=== PATIENT | male | born 1960 | race Two or more races ===

== ENCOUNTER 2022-12-28 10:54 | Outpatient (OUT) | payer OTHER, SELFPAY ==
[2022-12-28 12:02] LABS: Basophils Absolute Auto 0.1 10^3/uL (0.0-0.1); Basophils Percent Auto 1.4 % (0.2-2.0); Eosinophils Absolute Auto 0.1 10^3/uL (0.0-0.7); Eosinophils Percent Auto 3.3 % (0.9-7.0); Hematocrit 40.9 % (42.0-54.0); Hemoglobin 13.1 g/dL (14.0-18.0); Immature Granulocytes Abs Auto 0.01 10^3/uL (0.00-0.03); Immature Granulocytes Pct Auto 0.3 % (0.0-0.5); Lymphocytes Absolute Auto 1.3 10^3/uL (1.2-3.8); Lymphocytes Percent Auto 37.3 % (20.5-60.0); Mean Corpuscular Hemoglobin 28.6 pg (25.9-34.0); Mean Corpuscular Volume 89.3 fL (80.0-94.0); Mean Platelet Volume 10.6 fL (9.5-13.5); Monocytes Absolute Auto 0.5 10^3/uL (0.3-0.8); Monocytes Percent Auto 12.5 % (1.7-12.0); Neutrophils Absolute Auto 1.6 10^3/uL (1.4-6.5); Neutrophils Percent Auto 45.2 % (43.0-75.0); Platelet Count 235 10^3/uL (150-450); Red Blood Count 4.58 10^6/uL (4.70-6.10); Red Cell Distribution Width 14.8 % (11.0-15.0); White Blood Count 3.6 10^3/uL (4.0-11.0)
[2022-12-28 12:21] LABS: Estimated Average Glucose 108 mg/dL; Glycohemoglobin A1C 5.4 % (4.5-6.2)
[2022-12-28 12:41] LABS: Alanine Aminotransferase 33 U/L (16-63); Albumin Globulin Ratio 0.9; Albumin Level 3.7 g/dL (3.4-5.0); Alkaline Phosphatase 95 U/L (46-116); Anion Gap 12.7; Aspartate Amino Transferase 21 U/L (15-37); BUN Creatinine Ratio 19.1; Bilirubin Direct 0.1 mg/dL (0.0-0.2); Bilirubin Total 0.5 mg/dL (0.2-1.0); Calcium 9.2 mg/dL (8.5-10.1); Carbon Dioxide 27.4 mmol/L (21.0-32.0); Chloride 104 mmol/L (98-107); Chol HDL Ratio 1.8; Cholesterol 182 mg/dL (<=200); Estimated GFR (African America >60 (>=60); Estimated GFR (Non-African Ame >60 (>=60); Globulin 3.9 g/dL; Glucose 98 mg/dL (74-106); HDL Cholesterol 100 mg/dL (40-60); Potassium 4.1 mmol/L (3.5-5.1); Sodium 140 mmol/L (136-145); Thyroid Stimulating Hormone 3.287 uIU/mL (0.358-3.740); Total Protein 7.6 g/dL (6.4-8.2); Triglycerides 53 mg/dL (<=150); VLDL CHOLESTEROL 10.6 mg/dL
[2022-12-28 13:16] LABS: Prostate Specific Antigen Dx 0.56 ng/mL (<=4.00)
[2022-12-29 05:08] LABS: HSV 1 IgG, Type Spec <0.91 index (0.00-0.90); HSV 2 IgG, Type Spec <0.91 index (0.00-0.90)
== END 2022-12-28 10:55 ==
PROVIDERS: PCP Family Medicine; Visit Provider Family Medicine
DX: Z00.00 Encounter for general adult medical examination without abnormal findings (principal); Z20.2 Contact with and (suspected) exposure to infections with a predominantly sexual mode of transmission
CPT/HCPCS: 36415; 80048; 80061; 80076; 83036; 84153; 84443; 85025; 87389

== ENCOUNTER 2023-08-29 18:13 | Outpatient (OUT) | payer OTHER, SELFPAY ==
--- NOTE | 2023-08-29 18:37 | XR_ITS ---
The [address] [address] Patient Name: MIGUEL GASTELUM MRN: [id number] date: 1960 Sex: M Assigned Patient Location: [facility] Current Patient Location: Accession/Order Number: [id number] Exam Date: 08/29/2023 18:32 Report Date: 08/30/2023 03:10 At the request of: JANICE PHAM Procedure: XR shoulder RT min 2V SHOULDER RADIOGRAPHS: 08/29/2023 6:32 PM EST CLINICAL HISTORY: Chronic right shoulder pain following lifting injury 8 months ago. TECHNIQUE: Three routine views of the right shoulder were obtained. COMPARISON: None. FINDINGS: There is no fracture or acute osseous abnormality. There is no destructive osseous process. No dislocation or subluxation of joints. There is mild degenerative acromioclavicular joint narrowing with some minor subclavicular and subacromial spurring and joint level. Normal and well-preserved glenohumeral joint without significant degenerative change. No focal soft tissue abnormalities are evident. Bony mineralization is normal. XR/XR shoulder RT min 2V IMPRESSION: 1. No acute or healing fractures. 2. No acute joint findings. 3. 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 This could cause or contribute to rotator cuff impingement. If present clinically, this can be further assessed with outpatient/nonemergent right shoulder MRI. Electronically authenticated by: ALEJA GUTIERREZ Date: 08/30/2023 03:10
== END 2023-08-29 18:14 | disposition home or self-care (01) ==
LOC: RAD 18:16
PROVIDERS: PCP Family Medicine; Visit Provider Family Medicine
DX: M25.511 Pain in right shoulder (principal); M19.011 Primary osteoarthritis, right shoulder
CPT/HCPCS: 73030

== ENCOUNTER 2024-04-22 16:09 | Outpatient (OUT) | payer OTHER, SELFPAY ==
--- OUTSIDE RECORDS SUMMARY | 2024-04-22 16:24 | XMS_ITS | CCD ---
Author Organization [facility] Care Team Providers Care Pump Operator Name Role Phone DR JANICE PHAM Attending Unavailable ANKIT, DR JANICE Yoo Consulting Unavailable ANKIT, DR JANICE Yoo Primary Care Unavailable ANKIT, DR JANICE Yoo Admitting JANICE Chatman Referring Unavailable Wilfredo ADAMS Attending Unavailable Janice Pham MD Primary Care Provider Janice Pham MD Primary Care Provider [phone] JANICE PHAM Attending Unavailable JHONY CINTRON Attending JHONY Rivera Referring Unavailable Medications Current Medications Medication Drug Class(es) Dates Sig (Normalized) Sig (Original) aspirin 81 mg delayed release oral tablet (1 source) Platelet Aggregation Inhibitor, Nonsteroidal Anti-inflammatory Drug take 1 tablet by mouth in the morning aspirin 81 mg Take 1 tablet (81 mg total) by mouth in the morning. 0 Active calcium citrate 250 mg / ergocalciferol 100 mg oral tablet (1 source) Provitamin D2 Compound take 1 tablet by mouth in the morning, then take 1 tablet by mouth once at bedtime calcium citrate-vitamin D2 250 mg-2.5 mcg (100 unit) per tablet Take 1 tablet by mouth in the morning and 1 tablet before bedtime. 0 Active podofilox 5 mg/ml topical solution (1 source) Start: 07-03-2023 podofilox (CONDYLOX) 0.5 % external solution Apply topically 2 (two) times a day. Use for 3 days, hold for 4 days. Repeat as needed up to 4 times. 3.5 mL 0 07/03/2023 Active simvastatin 40 mg oral tablet (1 source) HMG-CoA Reductase Inhibitor Start: 06-06-2023 take 1 tablet by mouth at bedtime simvastatin (ZOCOR) 40 mg tablet TAKE 1 TABLET BY MOUTH AT BEDTIME 0 06/06/2023 Active valACYclovir 500 mg oral tablet (1 source) Herpesvirus Nucleoside Analog DNA Polymerase Inhibitor, Herpes Simplex Virus Nucleoside Analog DNA Polymerase Inhibitor, Herpes Zoster Virus Nucleoside Analog DNA Polymerase Inhibitor Start: 06-06-2023 take 1 tablet by mouth once daily valACYclovir (VALTREX) 500 mg tablet TAKE 1 TABLET BY MOUTH DAILY 0 06/06/2023 Active Problems Problem Classification Problem Date Documented Da te Episodic/Chronic Nutritional deficiencies (1 source) Vitamin D deficiency, unspecified; Translations: [VITAMIN D DEFICIENCY UNSPECIFIED] Onset: 12-07-2021 Chronic Other male genital disorders (1 source) Lesion of penis; Translations: [Disorder of penis, unspecified] Onset: 07-03-2023 07-03-2023 Chronic Other non-traumatic joint disorders (1 source) Pain in right shoulder; Translations: [Pain in joint, shoulder region] 08-29-2023 Episodic Other screening for suspected conditions (not mental disorders or infectious disease) (1 source) Encounter for screening for malignant neoplasm of prostate; Translations: [ENC SCREEN MALIG NEOPLASM PROSTATE] Onset: 12-07-2021 Episodic Results Test Name Value Interpretation Reference Range Facil ity CBC AUTO DIFFon 12-04-2021 BASO # 0.0 103/ul Normal 0.0-0.1 [facility] Comment on above: Performed By: #### C BC #### [facility] [address] [place] [address] Dr. Vaughn Molina Basophils/100 WBC (Bld) 0.6 % Normal 0.2-2.0 [facility] Comment on above: Performed By: #### C BC #### [facility] [address] [place] [address] Dr. Vaughn Molina EO # 0.1 103/ul Normal 0.0-0.7 [facility] Comment on above: Performed By: #### C BC #### [facility] [address] [place] [address] Dr. Vaughn Molina Eosinophils/100 WBC (Bld) 2.1 % Normal 0.9-7.0 [facility] Comment on above: Performed By: #### C BC #### [facility] [address] [place] [address] Dr. Vaughn Molina Erythrocyte distribution width (RBC) [Ratio] 14.6 % Normal 11.0-15.0 [facility] Comment on above: Performed By: #### C BC #### [facility] [address] [place] [address] Dr. Vaughn Molina Hematocrit (Bld) [Volume fraction] 44.2 % Normal 42.0-54.0 [facility] Comment on above: Performed By: #### C BC #### [facility] [address] [place] [address] Dr. Vaughn Molina Hemoglobin (Bld) [Mass/Vol] 13.7 g/dL Critically low 14.0-18.0 [facility] Comment on above: Performed By: #### C BC #### [facility] [address] [place] [address] Dr. Vaughn Molina IG # 0.01 10e3/ul Normal 0.00-0.03 [facility] Comment on above: Performed By: #### C BC #### [facility] [address] [place] [address] Dr. Vaughn Molina IG % 0.2 % Normal 0.0-0.5 [facility] Comment on above: Performed By: #### C BC #### [facility] [address] [place] [address] Dr. Vaughn Molina LYMPH # 1.4 103/ul Normal 1.2-3.8 [facility] Comment on above: Performed By: #### C BC #### [facility] [address] [place] [address] Dr. Vaughn Molina Lymphocytes/100 WBC (Bld) 29.9 % Normal 20.5-60.0 [facility] Comment on above: Performed By: #### C BC #### [facility] [address] [place] [address] Dr. Vaughn Molina MANUAL DIFF REQ NO Normal [facility] Comment on above: Performed By: #### C BC #### [facility] [address] [place] [address] Dr. Vaughn Molina MCH (RBC) [Entitic mass] 27.6 pg Normal 25.9-34.0 [facility] Comment on above: Performed By: #### C BC #### [facility] [address] [place] [address] Dr. Vaughn Molina MCHC (RBC) [Mass/Vol] 31.0 g/dL Normal 29.9-35.2 [facility] Comment on above: Performed By: #### C BC #### [facility] [address] [place] [address] Dr. Vaughn Molina MCV (RBC) [Entitic vol] 89.1 fL Normal 80.0-94.0 [facility] Comment on above: Performed By: #### C BC #### [facility] [address] [place] [address] Dr. Vaughn Molina MONO # 0.5 103/ul Normal 0.3-0.8 [facility] Comment on above: Performed By: #### C BC #### [facility] [address] [place] [address] Dr. Vaughn Molina Monocytes/100 WBC (Bld) 10.8 % Normal 1.7-12.0 [facility] Comment on above: Performed By: #### C BC #### [facility] [address] [place] [address] Dr. Vaughn Molina NEUT # 2.7 103/ul Normal 1.4-6.5 [facility] Comment on above: Performed By: #### C BC #### [facility] [address] [place] [address] Dr. Vaughn Molina Neutrophils/100 WBC (Bld) 56.4 % Normal 43.0-75.0 [facility] Comment on above: Performed By: #### C BC #### [facility] [address] [place] [address] Dr. Vaughn Molina Platelet mean volume (Bld) [Entitic vol] 11.0 fL Normal 9.5-13.5 [facility] Comment on above: Performed By: #### C BC #### [facility] [address] [place] [address] Dr. Vaughn Molina PLT 252 103/ul Normal 150-450 [facility] Comment on above: Performed By: #### C BC #### [facility] [address] [address] [address] Vaughn Molina RBC 4.96 106/ul Normal 4.70-6.10 [facility] Comment on above: Performed By: #### C BC #### [facility] [address] [place] [address] Dr. Vaughn Molina WBC 4.7 103/ul Normal 4.0-11.0 [facility] Comment on above: Performed By: #### C BC #### [facility] [address] [place] [address] Dr. Vaughn Molina GLYCOHEMOGLOBIN A1Con 2021 ADA RECOMMENDATION SEE BELOW Normal [facility] Comment on above: Result Comment: ADA RECOMMENDED LIMIT 4.0 - 6.0 ADA THERAPEUTIC TARGET < 7.0 ACTION SUGGESTED > 7.0 Performed By: #### A 1C #### [facility] [address] [place] [address] Dr. Vaughn Molina Glucose [Mass/Vol] 120 mg/dL Normal [facility] Comment on above: Performed By: #### A 1C #### [facility] [address] [place] [address] Dr. Vaughn Molina HbA1c (Bld) [Mass fraction] 5.8 % Normal 4.5-6.2 [facility] Comment on above: Performed By: #### A 1C #### [facility] [address] [place] [address] Dr. Vaughn Molina LIPID PROFILEon 12-04-2021 CHOL-HDL RATIO NORM SEE BELOW Normal [facility] Comment on above: Result Comment: 3.3 - 4.4 LOW RISK 4.4 - 7.1 AVERAGE RISK 7.1 - 11.0 MODERATE RISK >11.0 HIGH RISK Performed By: #### L IVMILAGRO, LIPID, TSH, BMP #### [facility] [address] [place] [address] Dr. Vaughn Molina Cholesterol [Mass/Vol] 172 mg/dL Normal <=200 [facility] Comment on above: Performed By: #### L DORY, LIPID, TSH, BMP #### [facility] [address] [address] [address] Vaughn Molina Cholesterol in HDL [Mass/Vol] 84 mg/dL Critically high 40-60 [facility] Comment on above: Performed By: #### L IVER, LIPID, TSH, BMP #### [facility] [address] [address] [address] Vaughn Molina Cholesterol in LDL [Mass/Vol] 75.6 mg/dL Normal [facility] Comment on above: Performed By: #### L IVER, LIPID, TSH, BMP #### [facility] [address] [address] [address] Vaughn Molina Cholesterol.total/Cho lesterol in HDL [Mass ratio] 2.0 {ratio} Normal [facility] Comment on above: Performed By: #### L IVER, LIPID, TSH, BMP #### [facility] [address] [place] [address] Dr. Vaughn Molina HDL NORMAL > or = 60 mg/dl - LOW CARDIOVASCULAR RISK <40 mg/dl - HIGH CARDIOVASCULAR RISK Normal [facility] Comment on above: Performed By: #### L IVER, LIPID, TSH, BMP #### [facility] [address] [place] [address] Dr. Vaughn Molina LDL CALC NORMAL SEE BELOW Normal [facility] Comment on above: Result Comment: <100 mg/dl OPTIMAL 100 - 129 mg/dl NEAR OR ABOVE OPTIMAL 130 - 159 mg/dl BORDERLINE HIGH 160 - 189 mg/dl HIGH >190 mg/dl VERY HIGH Performed By: #### L IVER, LIPID, TSH, BMP #### [facility] [address] [place] [address] Dr. Vaughn Molina Triglyceride [Mass/Vol] 62 mg/dL Normal <=150 [facility] Comment on above: Performed By: #### L IVER, LIPID, TSH, BMP #### [facility] [address] [place] [address] Dr. Vaughn Molina VLDL CALC 12.4 mg/dL Normal [facility] Comment on above: Performed By: #### L IVER, LIPID, TSH, BMP #### [facility] [address] [place] [address] Dr. Vaughn Molina LIVER PROFILEon 12-04-2021 Albumin [Mass/Vol] 3.8 g/dL Normal 3.4-5.0 [facility] Comment on above: Performed By: #### L IVER, LIPID, TSH, BMP #### [facility] [address] [place] [address] Dr. Vaughn Molina Albumin/Globulin [Mass ratio] 1.0 {ratio} Normal [facility] Comment on above: Performed By: #### L IVER, LIPID, TSH, BMP #### [facility] [address] [place] [address] Dr. Vaughn Molina ALP [Catalytic activity/Vol] 90 U/L Normal 46-116 [facility] Comment on above: Performed By: #### L IVER, LIPID, TSH, BMP #### [facility] [address] [place] [address] Dr. Vaughn Molina ALT [Catalytic activity/Vol] 26 U/L Normal 16-63 [facility] Comment on above: Performed By: #### L IVER, LIPID, TSH, BMP #### [facility] [address] [place] [address] Dr. Vaughn Molina AST [Catalytic activity/Vol] 16 U/L Normal 15-37 [facility] Comment on above: Performed By: #### L IVER, LIPID, TSH, BMP #### [facility] [address] [place] [address] Dr. Vaughn Molina BILI, CONJUGATED 0.1 mg/dL Normal 0.0-0.2 [facility] Comment on above: Performed By: #### L IVER, LIPID, TSH, BMP #### [facility] [address] [place] [address] Dr. Vaughn Molina Bilirubin [Mass/Vol] 0.2 mg/dL Normal 0.2-1.0 [facility] Comment on above: Performed By: #### L IVER, LIPID, TSH, BMP #### [facility] [address] [place] [address] Dr. Vaughn Molina Globulin (S) [Mass/Vol] 3.8 g/dL Normal [facility] Comment on above: Performed By: #### L IVER, LIPID, TSH, BMP #### [facility] [address] [place] [address] Dr. Vaughn Molina Protein [Mass/Vol] 7.6 g/dL Normal 6.4-8.2 [facility] Comment on above: Performed By: #### L IVER, LIPID, TSH, BMP #### [facility] [address] [place] [address] Dr. Vaughn Molina PROF CHEM 8 (BAS METB)on Anion gap [Moles/Vol] 11.6 mmol/L Normal [facility] Comment on above: Performed By: #### L IVER, LIPID, TSH, BMP #### [facility] [address] [place] [address] Dr. Vaughn Molina Calcium [Mass/Vol] 9.0 mg/dL Normal 8.5-10.1 [facility] Comment on above: Performed By: #### L IVER, LIPID, TSH, BMP #### [facility] [address] [place] [address] Dr. Vaughn Molina Chloride [Moles/Vol] 105 mmol/L Normal 98-107 [facility] Comment on above: Performed By: #### L IVER, LIPID, TSH, BMP #### [facility] [address] [place] [address] Dr. Vaughn Molina CO2 [Moles/Vol] 27.2 mmol/L Normal 21.0-32.0 [facility] Comment on above: Performed By: #### L IVER, LIPID, TSH, BMP #### [facility] [address] [place] [address] Dr. Vaughn Molina Creatinine [Mass/Vol] 0.97 mg/dL Normal 0.70-1.30 [facility] Comment on above: Performed By: #### L IVER, LIPID, TSH, BMP #### [facility] [address] [place] [address] Dr. Vaughn Molina EGFR-AF MALDIVIAN >60 Normal >=60 [facility] Comment on above: Performed By: #### L IVER, LIPID, TSH, BMP #### [facility] [address] [address] [address] Vaughn Molina EGFR-NON AF MALDIVIAN >60 Normal >=60 [facility] Comment on above: Performed By: #### L IVER, LIPID, TSH, BMP #### [facility] [address] [address] [address] Vaughn Molina Glucose [Mass/Vol] 95 mg/dL Normal 74-106 [facility] Comment on above: Performed By: #### L IVER, LIPID, TSH, BMP #### [facility] [address] [place] [address] Dr. Vaughn Molina Potassium [Moles/Vol] 3.8 mmol/L Normal 3.5-5.1 [facility] Comment on above: Performed By: #### L IVER, LIPID, TSH, BMP #### [facility] [address] [place] [address] Dr. Vaughn Molina Sodium [Moles/Vol] 140 mmol/L Normal 136-145 [facility] Comment on above: Performed By: #### L IVER, LIPID, TSH, BMP #### [facility] [address] [place] [address] Dr. Vaughn Molina Urea nitrogen [Mass/Vol] 17.0 mg/dL Normal 7.0-18.0 [facility] Comment on above: Performed By: #### L IVER, LIPID, TSH, BMP #### [facility] [address] [place] [address] Dr. Vaughn Molina Urea nitrogen/Creatinine [Mass ratio] 17.5 mg/mg Normal [facility] Comment on above: Performed By: #### L IVER, LIPID, TSH, BMP #### [facility] [address] [place] [address] Dr. Vaughn Molina TSHon 12-04-2021 TSH 3.539 uIU/mL Normal 0.358-3.740 [facility] Comment on above: Performed By: #### L IVER, LIPID, TSH, BMP #### [facility] [address] [address] [address] Vaughn Molina TSH RANGE SEE BELOW Normal [facility] Comment on above: Result Comment: <0.3 4 UIU/ml HYPERTHYROID 0.34-5.60 UIU/ml EUTHYROID >5.60 UIU/ml HYPOTHYROID Performed By: #### L IVER, LIPID, TSH, BMP #### [facility] [address] [address] [address] Vaughn Molina VITAMIN D 25 OHon 12-04-2021 VIT D 25-OH 35.1 ng/mL Normal [facility] Comment on above: Performed By: #### P SASC, VITAD #### [facility] [address] [address] [address] Vaughn Molina VIT D RANGES SEE BELOW Normal [facility] Comment on above: Result Comment: <20 ng/mL Vit D deficient 20 - <30 ng/mL Vit D insufficient 30 - 100 ng/mL Vit D sufficient >100 ng/mL Potential Toxicity Performed By: #### P SASC, VITAD #### [facility] [address] [address] [address] Vaughn Molina Encounters Encounter Date Encounter Type Care Provider Facility Start: 09-19-2023 End: 09-19-2023 ambulatory JHONY CINTRON Not Available Start: 09-19-2023 End: 09-19-2023 ambulatory JANICE PHAM Not Available Start: 08-30-2023 ambulatory JNAICE PHAM Facility:[facility] Start: 08-29-2023 Orders Only Janice Vega Work Phone: [facility] Comment on above: Right shoulder pain, unspecified chronicity (Primary Dx) Start: 07-31-2023 Telephone encounter Avery Garcia CMA [facility] Start: 06-10-2023 ambulatory JANICE PHAM Facility:[facility] Start: 12-07-2021 Encounter for genera l adult medical examination without abnormal findings DR JANICE PHAM [facility] Start: 12-04-2021 End: 12-05-[address] JANICE PHAM Facility:[facility] Start: 12-04-2021 End: 12-05-2021 Encounter for general adult medical examination without abnormal findings DR JANICE PHAM Facility:[facility] Procedures Date Procedure Procedure Detail Performing Clinician Start: 12-04-[address] JANICE NELSON Comment on above: Performed By: #### P SAS, VITAD #### [facility] [address] [place] [address] Dr. Vaughn Molina Plan of Treatment Date Care Activity Detail Author Start: 03-14-2032 DTaP,Tdap and Td Vaccines (2 - Td or Tdap) DTaP,Tdap and Td Vaccines (2 - Td or Tdap) [facility] Start: 07-03-2024 Adult BMI Screening Adult BMI Screen ing [facility] Start: 07-03-2024 Tobacco Screening Tobacco Screening [facility] Start: 08-29-2023 End: 08-29-2024 XR Shoulder - right 2 Views XR shoulder 2+ views right Imaging Routine Right shoulder pain, unspecified chronicity Expected: 08/29/2023, Expires: 08/29/2024 [facility] Work Phone: Comment on above: Expected: 08/29/2023 , Expires: 08/29/2024 Start: 03-22-2023 Influenza vaccination Influenza Vacc ine (#1) [facility] Start: 1979 Adult BMI Follow Up Plan Adult BMI Follow Up Plan [facility] Start: 1973 Depression Screening Depression Scre ening [facility] Start: 1961 Screening for malign ant neoplasm of colon [facility] Start: 1961 Tobacco Counseling Tobacco Counselin g [facility] Payers Date Payer Category Payer Unknown [id number] 2021 Unknown [id number] 1961 Unknown [id number] [id number] 1961 Unknown [id number] 1961 Unknown [id number] 1961 Unknown [id number] [id number] 1961 Unknown [id number] Social History Date Type Detail Facility Start: 07-22-1997 Tobacco smoking stat [facility] Smokes tobacco daily [facility] Start: 07-22-1997 History of tobacco use Cigar Smoker [facility] Start: 07-03-2023 Tobacco use and exposure Smokeless tobacco non-user [facility] Start: 07-03-2023 Alcohol intake Ex-drinker (finding) [facility] Start: 09-01-2020 End: 07-03-2023 History of Social function [facility] Start: 09-01-2020 End: 07-03-2023 Tobacco use panel [facility] Housing Instability Unknown [facility] Start: 1960 Sex Assigned At Not on file [facility] Tobacco smoking stat [facility] Tobacco smoking consumption unknown [facility] History of Present illness Narrative 08-29-2023 Janice Pham MD - 08/29/2023 4:03 PM EST Note Date & Type Note Facility 08-29-2023 History of Presen t illness Narrative X-ray in chart. Please send to hospital. MAN documented in this encounter [facility] Note 07-31-2023 Telephone Encounter - Avery Garcia CMA - 07/31/2023 1:16 PM ESTTelephone Encounter - Carlos Younger MD - 07/31/2023 1:16 PM EST Note Date & Type Note Facility 07-31-2023 Miscellaneous Notes Formattin g of this note might be different from the original. Patient came in stating he would like to cancel his 08/12/2023 appointment because the medication he was given has cleared up all issues and he does not see a reasoning for follow up noted [facility] 07-31-2023 Telephone Encounter - Avery Garcia CMA - 07/31/2023 1:16 PM EST Note Date & Type Note Facility 07-31-2023 Telephone encount er Note Patient came in stating he would like to cancel his 08/12/2023 appointment because the medication he was given has cleared up all issues and he does not see a reasoning for follow [facility] 07-31-2023 Telephone Encounter - Carlos Younger MD - 07/31/2023 1:16 PM EST Note Date & Type Note Facility 07-31-2023 Telephone encounter [facility] Evaluation note Note Date & Type Note Facility Evaluation note Diagnosis Right shoulder pain, unspecified chronicity- Primary documented in this encounter [facility] Instructions Note Date & Type Note Facility Instructions Not on filedocumented in this en counter [facility] Summary Purpose Family History No Family History Records FoundNo Family History Records FoundNo Family History Records Found Advance Directives No Advanced Directives Records FoundNo Advanced Directives Records FoundNo Advanced Directives Records Found Additional Source Comments (unrecognized sect ion and content) No Status Records FoundNo Status Records FoundNo Status Records Found INFORMATION SOURCE (unrecogn ized section and content) DATE CREATED AUTHOR 12/07/[address] [facility] DATE CREATED AUTHOR AUTHOR'S ORGANIZ ATION 06/12/2023 [facility] DATE CREATED AUTHOR AUTHOR'S ORGANIZ ATION 09/21/2023 [facility] Care Teams (unrecognized sec tion and content) Pump Operator Relationship Specialty Start Date End Date Janice Pham MD [address] [place] [address] PCP - General Family Medicine 10/24/19 Pump Operator Relationship Specialty Start Date End Date Janice Pham MD PCP - General Family Medicine 07/22/22 FOR RECORDS PERTAINING TO PATIENTS WHO ARE OR HAVE BEEN ENROLLED IN A CHEMICAL DEPENDENCY/SUBSTANCEABUSE PROGRAM, SOME INFORMATION MAY BE OMITTED. This clinical summary was aggregated from multiple sources. Caution should be exercised in using it in the provision of clinical care. This summary normalizes information from multiple sources, and as a consequence, information in this document may materially change the coding, format and clinical context of patient data. In addition, data may be omitted in some cases. CLINICAL DECISIONS SHOULD BE BASED ON THE PRIMARY CLINICAL RECORDS. [employer] provides no warranty or guarantee of the accuracy or completeness of information in this document.
[2024-04-22 16:33] LABS: Basophils Absolute Auto 0.1 10^3/uL (0.0-0.1); Eosinophils Absolute Auto 0.1 10^3/uL (0.0-0.7); Hematocrit 39.1 % (42.0-54.0); Hemoglobin 12.4 g/dL (14.0-18.0); Immature Granulocytes Abs Auto 0.01 10^3/uL (0.00-0.03); Immature Granulocytes Pct Auto 0.1 % (0.0-0.5); Lymphocytes Absolute Auto 1.2 10^3/uL (1.2-3.8); Lymphocytes Percent Auto 16.5 % (20.5-60.0); Mean Corpuscular HGB Conc 31.7 g/dL (29.9-35.2); Mean Corpuscular Hemoglobin 26.1 pg (25.9-34.0); Mean Corpuscular Volume 82.1 fL (80.0-94.0); Mean Platelet Volume 10.2 fL (9.5-13.5); Monocytes Absolute Auto 0.5 10^3/uL (0.3-0.8); Monocytes Percent Auto 6.7 % (1.7-12.0); Neutrophils Absolute Auto 5.3 10^3/uL (1.4-6.5); Neutrophils Percent Auto 74.7 % (43.0-75.0); Platelet Count 273 10^3/uL (150-450); Red Blood Count 4.76 10^6/uL (4.70-6.10); Red Cell Distribution Width 15.5 % (11.0-15.0); White Blood Count 7.2 10^3/uL (4.0-11.0)
[2024-04-22 16:43] LABS: Estimated Average Glucose 120 mg/dL; Glycohemoglobin A1C 5.8 % (4.5-6.2)
[2024-04-22 16:59] LABS: Alanine Aminotransferase 31 U/L (16-63); Albumin Level 3.8 g/dL (3.4-5.0); Alkaline Phosphatase 85 U/L (46-116); Anion Gap 13.9; Aspartate Amino Transferase 19 U/L (15-37); BUN Creatinine Ratio 15.6; Bilirubin Direct 0.1 mg/dL (0.0-0.2); Bilirubin Total 0.5 mg/dL (0.2-1.0); Calcium 9.8 mg/dL (8.5-10.1); Carbon Dioxide 27.2 mmol/L (21.0-32.0); Chloride 100 mmol/L (98-107); Cholesterol 180 mg/dL (<=200); Estimated GFR (African America 56 (>=60 mL/min/1.73m^2); Estimated GFR (Non-African Ame 46 (>=60 mL/min/1.73m^2); Globulin 3.9 g/dL; Glucose 207 mg/dL (74-106); HDL Cholesterol 91 mg/dL (40-60); Potassium 3.1 mmol/L (3.5-5.1); Sodium 138 mmol/L (136-145); Thyroid Stimulating Hormone 3.207 uIU/mL (0.358-3.740); Total Protein 7.7 g/dL (6.4-8.2); Triglycerides 132 mg/dL (<=150); VLDL CHOLESTEROL 26.4 mg/dL
[2024-04-22 17:11] LABS: Prostate Specific Antigen Scrn 0.67 ng/mL (<=4.00)
== END 2024-04-22 16:10 | disposition home or self-care (01) ==
PROVIDERS: PCP Family Medicine; Visit Provider Family Medicine
DX: Z00.00 Encounter for general adult medical examination without abnormal findings (principal)
CPT/HCPCS: 36415; 80048; 80061; 80076; 83036; 84443; 85025; G0103

== ENCOUNTER 2024-11-29 14:32 | Emergency (ER) | payer OTHER, SELFPAY ==
[2024-11-29 14:37] VITALS: BP 159/95; PULSE 95; TEMP 36.7; O2SAT 98; BMI 34.5
--- OUTSIDE RECORDS SUMMARY | 2024-11-29 14:38 | XMS_ITS | CCD ---
Author Organization [facility] Care Team Providers Care Customer Manager Name Role Phone DR ALEXANDER PHAM Attending Unavailable ANKIT, DR ALEXANDER Yoo Consulting Unavailable ANKIT, DR ALEXANDER Yoo Primary Care Unavailable DR ALEXANDER PHAM Admitting ALEXANDER Chatman Referring Unavailable Wilfredo ADAMS Attending Unavailable Alexander Pham MD Primary Care Provider Alexander Pham MD Primary Care Provider Alexander Pham MD Primary Care Provider ALEXANDER PHAM Attending Unavailable ALEXANDER PHAM Attending Unavailable ALEXANDER PHAM Attending Unavailable Allergies Allergy Classification Reported Allergen(s) Allergy Type Date of Onset Reaction(s) Facility (6 sources) Sulfonamides (Antibiotic) Propensity to adverse reactions 4 Unknown [facility] Medications Current Medications Medication Drug Class(es) Dates Sig (Normalized) Sig (Original) aspirin 81 mg delayed release oral tablet (7 sources) Platelet Aggregation Inhibitor, Nonsteroidal Anti-inflammator y Drug take 1 tablet by mouth in the morning aspirin 81 MG EC tablet Take 81 mg by mouth in the morning. Active calcium citrate 250 mg / cholecalciferol 100 unt oral tablet (6 sources) Vitamin D take 1 tablet by mouth once in the morning, then take 1 tablet by mouth once in the evening Calcium Citrate-Vitamin D (Jayesh-Citrate Plus Vitamin D) 250-2.5 MG-MCG tablet Take 1 tablet by mouth in the morning and 1 tablet in the evening. Active calcium citrate 250 mg / ergocalciferol 100 mg oral tablet (1 source) Provitamin D2 Compound take 1 tablet by mouth in the morning, then take 1 tablet by mouth once at bedtime calcium citrate-vitamin D2 250 mg-2.5 mcg (100 unit) per tablet Take 1 tablet by mouth in the morning and 1 tablet before bedtime. 0 Active hydroCHLOROthiazide 25 mg oral tablet (6 sources) Thiazide Diuretic Start: take 1 tablet by mouth once daily hydroCHLOROthiazide (HYDRODiuril) 25 MG tablet Indications: Benign essential hypertension (CMS/HCC) Take 1 tablet (25 mg) by mouth Daily 30 tablet 3 07/01/2024 Active Start: 03-10-2024 take 1 tablet by sebastian th once daily hydroCHLOROthiazide (HYDRODiuril) 25 MG tablet Indications: Benign essential hypertension (CMS/HCC) Take 1 tablet (25 mg) by mouth Daily 30 tablet 3 03/10/2024 Active nabumetone 500 mg oral tablet (6 sources) Nonsteroidal Anti-inflammatory Drug End: 10-08-2024 take 1 tablet by mouth in the morning nabumetone (Relafen) 500 MG tablet Take 500 mg by mouth in the morning and 500 mg before bedtime. 10/08/2024 Discontinued podofilox 5 mg/ml topical solution (1 source) Start: 07-03-2023 podofilox (CONDYLOX) 0.5 % external solution Apply topically 2 (two) times a day. Use for 3 days, hold for 4 days. Repeat as needed up to 4 times. 3.5 mL 0 07/03/2023 Active simvastatin 40 mg oral tablet (7 sources) HMG-CoA Reductase Inhibitor Start: 02-27-2024 End: 02-26-2025 take 1 tablet by mouth at bedtime simvastatin (Zocor) 40 MG tablet Indications: Dyslipidemia (CMS/HCC) Take 1 tablet (40 mg) by mouth at bedtime 30 tablet 11 02/27/2024 02/26/2025 Active Start: 06-06-2023 take 1 tablet by sebastian th at bedtime simvastatin (ZOCOR) 40 mg tablet TAKE 1 TABLET BY MOUTH AT BEDTIME 0 06/06/2023 Active valACYclovir 500 mg oral tablet (7 sources) Herpesvirus Nucleoside Analog DNA Polymerase Inhibitor, Herpes Simplex Virus Nucleoside Analog DNA Polymerase Inhibitor, Herpes Zoster Virus Nucleoside Analog DNA Polymerase Inhibitor Start: 02-27-2024 End: 02-26-2025 take 1 tablet by mouth once daily valACYclovir (Valtrex) 500 MG tablet Indications: Herpes simplex infection of penis Take 1 tablet (500 mg) by mouth Daily 30 tablet 11 02/27/2024 10/08/2024 Discontinued Start: 06-06-2023 take 1 tablet by sebastian th once daily valACYclovir (VALTREX) 500 mg tablet TAKE 1 TABLET BY MOUTH DAILY 0 06/06/2023 Active Completed/Discontinued Medications Medication Drug Class(es) Dates Sig (Normalized) Sig (Original) oxaprozin 600 mg oral tablet (3 sources) Nonsteroidal Anti-inflammatory Drug Start: 09-19-2023 End: 04-21-2024 take 2 tablets by mouth once daily oxaprozin (Daypro) 600 MG tablet Indications: Arthritis of right acromioclavicular joint Take 2 tablets (1,200 mg) by mouth Daily 60 tablet 3 09/19/2023 04/21/2024 Discontinued predniSONE 10 mg oral tablet (3 sources) Start: 04-06-2024 End: 04-21-2024 take 6 tablets by mouth once daily, then take 4 tablets by mouth once daily, then take 2 tablets by mouth once daily, then take 1 tablet by mouth once daily predniSONE (Deltasone) 10 MG tablet Indications: Poison sandro dermatitis 6 PO daily x 3 days, 4 PO daily x 3 days, 2 PO daily x 3 days, 1 PO daily x 3 days 39 tablet 04/06/2024 04/21/2024 Discontinued Problems Problem Classification Problem Date Documented Date Episodic/Chronic Diabetes mellitus without complication (4 sources) Prediabetes; Translations: [Prediabetes] Onset: 04-23-2024 10-08-2024 Episodic Disorders of lipid metabolism (6 sources) Dyslipidemia; Translations: [Hyperlipidemia, unspecified] Onset: 09-19-2023 09-19-2023 Chronic Essential hypertension (10 sources) Benign essential hypertension; Translations: [Essential (primary) hypertension] Onset: 09-19-2023 04-21-2024 Chronic Nutritional deficiencies (7 sources) Vitamin D deficiency, unspecified; Translations: [Vitamin D deficiency] Onset: 12-07-2021 09-19-2023 Chronic Osteoarthritis (6 sources) Arthritis of right acromioclavicular joint; Translations: [Primary osteoarthritis, right shoulder] Onset: 09-05-2023 09-19-2023 Chronic Other connective tissue disease (8 sources) Adhesive capsulitis of right shoulder; Translations: [Adhesive capsulitis of right shoulder] Onset: 10-18-2023 10-18-2023 Episodic Other male genital disorders (6 sources) Secondary erectile dysfunction; Translations: [Male erectile dysfunction, unspecified] Onset: 09-19-2023 09-19-2023 Chronic Other male genital disorders (7 sources) Lesion of penis; Translations: [Disorder of penis, unspecified] Onset: 07-03-2023 09-19-2023 Chronic Other non-traumatic joint disorders (1 source) Pain in right shoulder; Translations: [Pain in joint, shoulder region] 08-29-2023 Episodic Other screening for suspected conditions (not mental disorders or infectious disease) (3 sources) Encounter for screening for malignant neoplasm of prostate; Translations: [Patient encounter status] Onset: 12-07-2021 04-21-2024 Episodic Viral infection (6 sources) Herpetic infection of penis; 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 1 mg/dL [facility] Chloride [Moles/Vol] 100 mmol/L 98 - 10 7 mmol/L [facility] CO2 [Moles/Vol] 27.2 mmol/L 21.0 - 32.0 mmol/L [facility] Creatinine [Mass/Vol] 1.54 mg/dL High 0.70 - 1.30 mg/dL [facility] GFR/1.73 sq M.predicted CKD-EPI (S/P/Bld) [Vol rate/Area] 56 Low >=60 mL/min/1.73m 2 [facility] Glucose [Mass/Vol] 207 mg/dL High 74 - 106 mg/dL [facility] Potassium [Moles/Vol] 3.1 mmol/L Low 3.5 - 5.1 mmol/L [facility] Sodium [Moles/Vol] 138 mmol/L 136 - 145 mmol/L [facility] TBH EGFR-NON AF [facility] 46 Low >=60 mL/min/1.73m 2 [facility] Urea nitrogen [Mass/Vol] 24.0 mg/dL High 7.0 - 18.0 mg/dL [facility] Urea nitrogen/Creatinine [Mass ratio] 15.6 mg/mg [facility] ALL CBC WITH AUTO DIFFon BASOPHILS ABSOLUTE AUTO 0.1 [facility] Basophils/100 WBC (Bld) 1.0 % 0.2 - 2.0 % [facility] Eosinophils/100 WBC (Bld) 1.0 % 0.9 - 7.0 % [facility] Erythrocyte distribution width (RBC) [Ratio] 15.5 % High 11.0 - 15.0 % [facility] Hematocrit (Bld) [Volume fraction] 39.1 % Low 42.0 - 54.0 % [facility] ([facility] [Mass/Vol] 12.4 g/dL Low 14.0 - 18.0 g/dL [facility] IMMATURE GRANULOCYTES ABS AUTO 0.01 [facility] Immature granulocytes/100 WBC (Bld) 0.1 % 0.0 - 0.5 % [facility] Interpretation and review of laboratory results Abnormal [facility] LYMPHOCYTES ABSOLUTE AUTO 1.2 [facility] Lymphocytes/100 WBC (Bld) 16.5 % Low 20.5 - 60.0 % [facility] MCH (RBC) [Entitic mass] 26.1 pg 25.9 - 34.0 pg [facility] MCHC (RBC) [Mass/Vol] 31.7 g/dL 29.9 - 35.2 g/dL [facility] MCV (RBC) [Entitic vol] 82.1 fL 80.0 - 94.0 fL [facility] MONOCYTES ABSOLUTE AUTO 0.5 [facility] Monocytes/100 WBC (Bld) 6.7 % 1.7 - 12.0 % [facility] NEUTROPHILS ABSOLUTE AUTO 5.3 [facility] Neutrophils/100 WBC (Bld) 74.7 % 43.0 - 75.0 % [facility] Platelet mean volume (Bld) [Entitic vol] 10.2 fL 9.5 - 13.5 fL [facility] # 0.1 [facility] PLT 273 [facility] RBC 4.76 [facility] WBC 7.2 [facility] ALL LIPID PROFILE (FASTING)o n 04-22-2024 CHOL HDL RATIO 2.0 [facility] Comment on above: 3.3 - 4.4 LOW RISK 4.4 - 7.1 AVERAGE RISK 7.1 - 11.0 MODERATE RISK >11.0 H[facility]ISK Cholesterol [Mass/Vol] 180 mg/dL NINF - 200 mg/dL [facility] Cholesterol in HDL [Mass/Vol] 91 mg/dL High 40 - 60 mg/dL [facility] Comment on above: > or =60 mg/dl - LOW CARDIOVASCULAR RISK <40 mg/dl - HIGH CARDIOVASCULAR RISK Magnesium [Mass/Vol] 63.0 mg/dL [facility] Comment on above: <100 mg/dl OPTIMAL 100-129 mg/dl NEAR OR ABOVE OPTIMAL 130-159 mg/dl BORDERLINE HIGH 160-189 mg/dl HIGH >190 mg/dl VERY HIGH Magnesium [Mass/Vol] 26.4 mg/dL [facility] Triglyceride [Mass/Vol] 132 mg/dL NINF - 150 mg/dL [facility] ALL THYROID STIM HORMONEon 1 TSH Qn 3.207 m[IU]/L [facility] LIVER PANELon 4 Albumin [Mass/Vol] 3.8 g/dL 3.4 - 5.0 g/dL [facility] ALBUMIN GLOBULIN RATIO 1.0 [facility] ALP [Catalytic activity/Vol] 85 U/L 46 - 116 U/L [facility] ALT [Catalytic activity/Vol] 31 U/L 16 - 63 U/L [facility] AST [Catalytic activity/Vol] 19 U/L 15 - 37 U/L [facility] Bilirubin [Mass/Vol] 0.5 mg/dL 0.2 - 1 .0 mg/dL [facility] Bilirubin.indirect [Mass/Vol] 0.1 mg/dL 0.0 - 0.2 mg/dL [facility] Globulin (S) [Mass/Vol] 3.9 g/dL [facility] Protein [Mass/Vol] 7.7 g/dL 6.4 - 8.2 g/dL NO [facility] HEMOGLOBIN A1Con 024 Glucose [Mass/Vol] 120 mg/dL [facility] HbA1c (Bld) [Mass fraction] 5.8 % 4.5 - 6.2 % [facility] Comment on above: ADA RECOMMENDED LIMI T 4.0 - 6.0 ADA THERAPEUTIC TARGET < 7.0 ACTION SUGGESTED > 7.0 [facility] No Panel Informationon 04-22 Interpretation and review of laboratory results Abnormal [facility] CBC AUTO DIFFon 12-04-2021 BASO # 0.0 103/ul Normal 0.0-0.1 [facility] Comment on above: Performed By: #### C BC #### [facility] [address] [address] [address] Vaughn Molina Basophils/100 WBC (Bld) 0.6 % Normal 0.2-2.0 [facility] Comment on above: Performed By: #### C BC #### [facility] [address] [address] [address] Vaughn Molina EO # 0.1 103/ul Normal 0.0-0.7 [facility] Comment on above: Performed By: #### C BC #### [facility] [address] [address] [address] Vaughn Molina Eosinophils/100 WBC (Bld) 2.1 % Normal 0.9-7.0 [facility] Comment on above: Performed By: #### C BC #### [facility] [address] [address] [address] Vaughn Molina Erythrocyte distribution width (RBC) [Ratio] 14.6 % Normal 11.0-15.0 [facility] Comment on above: Performed By: #### C BC #### [facility] [address] [address] [address] Vaughn Molina Hematocrit (Bld) [Volume fraction] 44.2 % Normal 42.0-54.0 [facility] Comment on above: Performed By: #### C BC #### [facility] [address] [address] [address] Vaughn Molina Hemoglobin (Bld) [Mass/Vol] 13.7 g/dL Critically low 14.0-18.0 [facility] Comment on above: Performed By: #### C BC #### [facility] [address] [address] [address] Vaughn Molina IG # 0.01 10e3/ul Normal 0.00-0.03 [facility] Comment on above: Performed By: #### C BC #### [facility] [address] [place] [address] Dr. Vaughn Molina IG % 0.2 % Normal 0.0-0.5 [facility] Comment on above: Performed By: #### C BC #### [facility] [address] [place] [address] Dr. Vaughn Molina LYMPH # 1.4 103/ul Normal 1.2-3.8 [facility] Comment on above: Performed By: #### C BC #### [facility] [address] [place] [address] Dr. Vaughn Molina Lymphocytes/100 WBC (Bld) 29.9 % Normal 20.5-60.0 [facility] Comment on above: Performed By: #### C BC #### [facility] [address] [place] [address] Dr. Vaughn Molina MANUAL DIFF REQ NO Normal [facility] Comment on above: Performed By: #### C BC #### [facility] [address] [place] [address] Dr. Vaughn Molina MCH (RBC) [Entitic mass] 27.6 pg Normal 25.9-34.0 [facility] Comment on above: Performed By: #### C BC #### [facility] [address] [place] [address] Dr. Vaughn Molina MCHC (RBC) [Mass/Vol] 31.0 g/dL Normal 29.9-35.2 [facility] Comment on above: Performed By: #### C BC #### [facility] [address] [place] [address] Dr. Vaughn Molina MCV (RBC) [Entitic vol] 89.1 fL Normal 80.0-94.0 [facility] Comment on above: Performed By: #### C BC #### [facility] [address] [place] [address] Dr. Vaughn Molina MONO # 0.5 103/ul Normal 0.3-0.8 [facility] Comment on above: Performed By: #### C BC #### [facility] [address] [place] [address] Dr. Vaughn Molina Monocytes/100 WBC (Bld) 10.8 % Normal 1.7-12.0 [facility] Comment on above: Performed By: #### C BC #### [facility] [address] [place] [address] Dr. Vaughn Molina NEUT # 2.7 103/ul Normal 1.4-6.5 [facility] Comment on above: Performed By: #### C BC #### [facility] [address] [place] [address] Dr. Vaughn Molina Neutrophils/100 WBC (Bld) 56.4 % Normal 43.0-75.0 [facility] Comment on above: Performed By: #### C BC #### [facility] [address] [place] [address] Dr. Vaughn Molina Platelet mean volume (Bld) [Entitic vol] 11.0 fL Normal 9.5-13.5 [facility] Comment on above: Performed By: #### C BC #### [facility] [address] [place] [address] Dr. Vaughn Molina PLT 252 103/ul Normal 150-450 [facility] Comment on above: Performed By: #### C BC #### [facility] [address] [place] [address] Dr. Vaughn Molina RBC 4.96 106/ul Normal 4.70-6.10 [facility] Comment on above: Performed By: #### C BC #### [facility] [address] [place] [address] Dr. Vaughn Molina WBC 4.7 103/ul Normal 4.0-11.0 [facility] Comment on above: Performed By: #### C BC #### [facility] [address] [place] [address] Dr. Vaughn Molina GLYCOHEMOGLOBIN A1Con 2021 ADA RECOMMENDATION SEE BELOW Normal [facility] Comment on above: Result Comment: ADA RECOMMENDED LIMIT 4.0 - 6.0 ADA THERAPEUTIC TARGET < 7.0 ACTION SUGGESTED > 7.0 Performed By: #### A 1C #### [facility] [address] [address] [address] Vaughn Molina Glucose [Mass/Vol] 120 mg/dL Normal [facility] Comment on above: Performed By: #### A 1C #### [facility] [address] [address] [address] Vaughn Molina HbA1c (Bld) [Mass fraction] 5.8 % Normal 4.5-6.2 [facility] Comment on above: Performed By: #### A 1C #### [facility] [address] [place] [address] Dr. Vaughn Molina LIPID PROFILEon 12-04-2021 CHOL-HDL RATIO NORM SEE BELOW Normal [facility] Comment on above: Result Comment: 3.3 - 4.4 LOW RISK 4.4 - 7.1 AVERAGE RISK 7.1 - 11.0 MODERATE RISK >11.0 HIGH RISK Performed By: #### L IVER, LIPID, TSH, BMP #### [facility] [address] [place] [address] Dr. Vaughn Molina Cholesterol [Mass/Vol] 172 mg/dL Normal <=200 [facility] Comment on above: Performed By: #### L IVER, LIPID, TSH, BMP #### [facility] [address] [place] [address] Dr. Vaughn Molina Cholesterol in HDL [Mass/Vol] 84 mg/dL Critically high 40-60 [facility] Comment on above: Performed By: #### L IVER, LIPID, TSH, BMP #### [facility] [address] [place] [address] Dr. Vaughn Molina Cholesterol in LDL [Mass/Vol] 75.6 mg/dL Normal [facility] Comment on above: Performed By: #### L IVER, LIPID, TSH, BMP #### [facility] [address] [place] [address] Dr. Vaughn Molina Cholesterol.total/Cho lesterol in HDL [Mass ratio] 2.0 {ratio} Normal [facility] Comment on above: Performed By: #### L IVER, LIPID, TSH, BMP #### [facility] [address] [address] [address] Vaughn Molina HDL NORMAL > or = 60 mg/dl - LOW CARDIOVASCULAR RISK <40 mg/dl - HIGH CARDIOVASCULAR RISK Normal [facility] Comment on above: Performed By: #### L IVER, LIPID, TSH, BMP #### [facility] [address] [address] [address] Vaughn Molina LDL CALC NORMAL SEE BELOW Normal [facility] Comment on above: Result Comment: <100 mg/dl OPTIMAL 100 - 129 mg/dl NEAR OR ABOVE OPTIMAL 130 - 159 mg/dl BORDERLINE HIGH 160 - 189 mg/dl HIGH >190 mg/dl VERY HIGH Performed By: #### L IVER, LIPID, TSH, BMP #### [facility] [address] [address] [address] Vaughn Molina Triglyceride [Mass/Vol] 62 mg/dL Normal <=150 [facility] Comment on above: Performed By: #### L IVER, LIPID, TSH, BMP #### [facility] [address] [address] [address] Vaughn Molina VLDL CALC 12.4 mg/dL Normal [facility] Comment on above: Performed By: #### L IVER, LIPID, TSH, BMP #### [facility] [address] [address] [address] Vaughn Molina LIVER PROFILEon 12-04-2021 Albumin [Mass/Vol] 3.8 g/dL Normal 3.4-5.0 [facility] Comment on above: Performed By: #### L IVER, LIPID, TSH, BMP #### [facility] [address] [place] [address] Dr. Vaughn Molina Albumin/Globulin [Mass ratio] 1.0 {ratio} Normal [facility] Comment on above: Performed By: #### L IVER, LIPID, TSH, BMP #### [facility] [address] [place] [address] Dr. Vaughn Molina ALP [Catalytic activity/Vol] 90 U/L Normal 46-116 [facility] Comment on above: Performed By: #### L IVER, LIPID, TSH, BMP #### [facility] [address] [address] [address] Vaughn Molina ALT [Catalytic activity/Vol] 26 U/L Normal 16-63 [facility] Comment on above: Performed By: #### L IVER, LIPID, TSH, BMP #### [facility] [address] [place] [address] Dr. Vaughn Molina AST [Catalytic activity/Vol] 16 U/L Normal 15-37 [facility] Comment on above: Performed By: #### L IVER, LIPID, TSH, BMP #### [facility] [address] [place] [address] Dr. Vaughn Molina BILI, CONJUGATED 0.1 mg/dL Normal 0.0-0.2 [facility] Comment on above: Performed By: #### L IVER, LIPID, TSH, BMP #### [facility] [address] [place] [address] Dr. Vaughn Molina Bilirubin [Mass/Vol] 0.2 mg/dL Normal 0.2-1.0 [facility] Comment on above: Performed By: #### L IVER, LIPID, TSH, BMP #### [facility] [address] [place] [address] Dr. Vaughn Molina Globulin (S) [Mass/Vol] 3.8 g/dL Normal [facility] Comment on above: Performed By: #### L IVER, LIPID, TSH, BMP #### [facility] [address] [place] [address] Dr. Vaughn Molina Protein [Mass/Vol] 7.6 g/dL Normal 6.4-8.2 [facility] Comment on above: Performed By: #### L IVER, LIPID, TSH, BMP #### [facility] [address] [place] [address] Dr. Vaughn Molina PROF CHEM 8 (BAS METB)on Anion gap [Moles/Vol] 11.6 mmol/L Normal [facility] Comment on above: Performed By: #### L IVER, LIPID, TSH, BMP #### [facility] [address] [address] [address] Vaughn Molina Calcium [Mass/Vol] 9.0 mg/dL Normal 8.5-10.1 [facility] Comment on above: Performed By: #### L IVER, LIPID, TSH, BMP #### [facility] [address] [address] [address] Vaughn Molina Chloride [Moles/Vol] 105 mmol/L Normal 98-107 [facility] Comment on above: Performed By: #### L IVER, LIPID, TSH, BMP #### [facility] [address] [address] [address] Vaughn Molina CO2 [Moles/Vol] 27.2 mmol/L Normal 21.0-32.0 [facility] Comment on above: Performed By: #### L IVER, LIPID, TSH, BMP #### [facility] [address] [place] [address] Dr. Vaughn Molina Creatinine [Mass/Vol] 0.97 mg/dL Normal 0.70-1.30 [facility] Comment on above: Performed By: #### L IVER, LIPID, TSH, BMP #### [facility] [address] [address] [address] Vuaghn Molina EGFR-AF [facility] >60 Normal >=60 [facility] Comment on above: Performed By: #### L IVER, LIPID, TSH, BMP #### [facility] [address] [place] [address] Dr. Vaughn Molina EGFR-NON AF [facility] >60 Normal >=60 [facility] Comment on above: Performed By: #### L IVER, LIPID, TSH, BMP #### [facility] [address] [place] [address] Dr. Vaughn Molina Glucose [Mass/Vol] 95 mg/dL Normal 74-106 [facility] Comment on above: Performed By: #### L IVER, LIPID, TSH, BMP #### [facility] [address] [place] [address] Dr. Vaughn Molina Potassium [Moles/Vol] 3.8 mmol/L Normal 3.5-5.1 [facility] Comment on above: Performed By: #### L IVER, LIPID, TSH, BMP #### [facility] [address] [address] [address] Vaughn Molina Sodium [Moles/Vol] 140 mmol/L Normal 136-145 [facility] Comment on above: Performed By: #### L IVER, LIPID, TSH, BMP #### [facility] [address] [address] [address] Vaughn Molina Urea nitrogen [Mass/Vol] 17.0 mg/dL Normal 7.0-18.0 [facility] Comment on above: Performed By: #### L IVER, LIPID, TSH, BMP #### [facility] [address] [place] [address] Dr. Vaughn Molina Urea nitrogen/Creatinine [Mass ratio] 17.5 mg/mg Normal [facility] Comment on above: Performed By: #### L IVER, LIPID, TSH, BMP #### [facility] [address] [place] [address] Dr. Vaughn Molina TSHon 12-04-2021 TSH 3.539 uIU/mL Normal 0.358-3.740 [facility] Comment on above: Performed By: #### L IVER, LIPID, TSH, BMP #### [facility] [address] [place] [address] Dr. Vaughn Molina TSH RANGE SEE BELOW Normal [facility] Comment on above: Result Comment: <0.3 4 UIU/ml HYPERTHYROID 0.34-5.60 UIU/ml EUTHYROID >5.60 UIU/ml HYPOTHYROID Performed By: #### L IVER, LIPID, TSH, BMP #### [facility] [address] [place] [address] Dr. Vaughn Molina VITAMIN D 25 OHon 12-04-2021 VIT D 25-OH 35.1 ng/mL Normal [facility] Comment on above: Performed By: #### P SASC, VITAD #### [facility] [address] [place] [address] Dr. Vaughn Molina VIT D RANGES SEE BELOW Normal [facility] Comment on above: Result Comment: <20 ng/mL Vit D deficient 20 - <30 ng/mL Vit D insufficient 30 - 100 ng/mL Vit D sufficient >100 ng/mL Potential Toxicity Performed By: #### P SASC, VITAD #### [facility] [address] [place] [address] Dr. Vaughn Molina Vital Signs Date Time Vital Sign Value Performing Clinician Faci lity 10-08-2024 12:18-0400 Body height 162.6 cm Alexander Pham MD Work Phone: [facility] 10-08-2024 12:18-0400 Body mass index (BMI) [Ratio] 28.84 kg/m2 Alexander Pham MD Work Phone: [facility] 10-08-2024 12:18-0400 Body temperature 97.81 [degF] Alexander Pham MD Work Phone: [facility] 10-08-2024 12:18-0400 Body weight 76.2 kg Alexander Pham MD Work Phone: [facility] 10-08-2024 12:18-0400 Diastolic blood pressure 84 mm[Hg] Alexander Pham MD Work Phone: [facility] 10-08-2024 12:18-0400 Heart rate 76 /min Alexander Pham MD Work Phone: [facility] 10-08-2024 12:18-0400 Respiratory rate 18 /min Alexander Pham MD Work Phone: [facility] 10-08-2024 12:18-0400 SaO2% (BldA) [Mass fraction] 96 % Alexander Pham MD Work Phone: [facility] 10-08-2024 12:18-0400 Systolic blood pressure 130 mm[Hg] Alexander Pham MD Work Phone: [facility] 04-21-2024 15:33-0400 Body height 162.6 cm Alexander Pham MD Work Phone: [facility] 04-21-2024 15:33-0400 Body mass index (BMI) [Ratio] 27.81 kg/m2 Alexander Pham MD Work Phone: [facility] 04-21-2024 15:33-0400 Body temperature 97.81 [degF] Alexander Pham MD Work Phone: [facility] 04-21-2024 15:33-0400 Body weight 73.48 kg Alexander Pham MD Work Phone: [facility] 04-21-2024 15:33-0400 Diastolic blood pressure 54 mm[Hg] Alexander Pham MD Work Phone: [facility] 04-21-2024 15:33-0400 Heart rate 69 /min Alexander Pham MD Work Phone: [facility] 04-21-2024 15:33-0400 Respiratory rate 16 /min Alexander Pham MD Work Phone: [facility] 04-21-2024 15:33-0400 SaO2% (BldA) [Mass fraction] 98 % Alexander Pham MD Work Phone: [facility] 04-21-2024 15:33-0400 Systolic blood pressure 112 mm[Hg] Alexander Pham MD Work Phone: [facility] Encounters Encounter Date Encounter Type Care Provider Facility Start: 10-08-2024 End: 10-08-2024 Office outpatient visit 15 minutes Alexander Pham MD Work Phone: [facility] Comment on above: Benign essential hyp ertension (CMS/HCC) (Primary Dx); Prediabetes; Adhesive capsulitis of right shoulder Start: 10-08-2024 End: 10-08-2024 ambulatory ALEXANDER PHAM Not Available Start: 04-22-2024 End: 04-23-2024 Clinisync Result Encounter Alexander Pham MD Work Phone: [facility] External Department Unsolicited Start: 04-22-2024 End: 04-23-2024 Clinisync Result Encounter Alexander Pham MD Work Phone: [facility] External Department Unsolicited Start: 04-21-2024 End: 04-21-2024 Periodic preventive med est patient 40-64yrs Alexander Pham MD Work Phone: [facility] Comment on above: Annual physical exam (Primary Dx); Benign essential hypertension (CMS/HCC); Colon cancer screening Start: 04-21-2024 End: 04-21-2024 ambulatory ALEXANDER PHAM Not Available Start: 04-21-2024 End: 04-21-2024 Bamboo flowsheet Alexander Pham MD Work Phone: [facility] Start: 04-21-2024 End: 04-21-2024 Bamboo flowsheet Alexander Pham MD Work Phone: [facility] Start: 04-21-2024 End: 04-21-2024 Patient encounter procedure Alexander Pham MD Work Phone: [facility] Work Phone: Start: 10-18-2023 End: 10-18-2023 ambulatory ALEXANDER PHAM Not Available Start: 08-30-2023 ambulatory ALEXANDER PHAM Facility:[facility] Start: 08-29-2023 Orders Only Alexander Vega Work Phone: [facility] Comment on above: Right shoulder pain, unspecified chronicity (Primary Dx) Start: 07-31-2023 Telephone encounter Avery Garcia CMA [facility] Start: 06-10-2023 ambulatory ALEXANDER PHAM Facility:[facility] Start: 12-07-2021 Encounter for genera l adult medical examination without abnormal findings DR ALEXANDER PHAM [facility] Start: 12-04-2021 End: 12-05-[address] ALEXANDER PHAM Facility:[facility] Start: 12-04-2021 End: 12-05-2021 Encounter for general adult medical examination without abnormal findings DR ALEXANDER PHAM Facility:[facility] Procedures Date Procedure Procedure Detail Performing Clinician Start: 04-22-2024 ALL BASIC METABOLIC PANEL Alexander Pham MD Work Phone: Start: 04-22-2024 ALL CBC WITH AUTO DIFF Alexander Pham MD Work Phone: Start: 04-22-2024 ALL LIPID PROFILE (FASTING) Alexander Pham MD Work Phone: Start: 04-22-2024 ALL THYROID STIM HORMONE Alexander Pham MD Work Phone: Start: 04-22-2024 HMHP LIVER PANEL Alexander britton MD Work Phone: Start: 04-22-2024 MLR HEMOGLOBIN A1C Alexander Pham MD Work Phone: Start: 12-04-[address] ALEXANDER BRITTON Comment on above: Performed By: #### P SASC, VITAD #### [facility] [address] [place] [address] Dr. Vaughn Molina Plan of Treatment Date Care Activity Detail Author Start: 03-14-2032 DTaP,Tdap and Td Vaccines (2 - Td or Tdap) DTaP,Tdap and Td Vaccines (2 - Td or Tdap) [facility] Start: 04-27-2027 Screening for malign ant neoplasm of colon [facility] Start: 10-20-2024 End: 10-20-2024 Patient encounter procedure 10/20/2024 2:45 PM EDT Office Visit [facility] [address] [place] [address] Alexander Pham MD [address] [place] [phone] [facility] Start: 10-08-2024 End: 10-08-2025 Basic metabolic 1998 panel - Serum or Plasma Basic metabolic panel Lab Routine Prediabetes Expected: 10/08/2024 (Approximate), Expires: 10/08/2025 [facility] Comment on above: Expected: 10/08/2024 (Approximate), Expires: 10/08/2025 Start: 10-08-2024 End: 10-08-2025 Hemoglobin A1c/Hemoglobin.total in Blood Hemoglobin A1c Lab Routine Prediabetes Expected: 10/08/2024 (Approximate), Expires: 10/08/2025 [facility] Work Phone: Comment on above: Expected: 10/08/2024 (Approximate), Expires: 10/08/2025 Start: 07-03-2024 Adult BMI Screening Adult BMI Screen ing [facility] Start: 07-03-2024 Tobacco Screening Tobacco Screening [facility] Start: 04-21-2024 End: 04-21-2024 Patient encounter procedure 04/21/2024 3:30 PM EDT Office Visit [facility] [address] [place] [phone] Alexander Pham MD [address] [place] [phone] Arrived [facility] Comment on above: Arrived Start: 04-21-2024 End: 04-21-2025 Basic metabolic 1998 panel - Serum or Plasma Basic metabolic panel Lab Routine Annual physical exam Expected: 04/21/2024 (Approximate), Expires: 04/21/2025 [facility] Comment on above: Expected: 04/21/2024 (Approximate), Expires: 04/21/2025 Start: 04-21-2024 End: 04-21-2025 CBC W Auto Differential panel - Blood CBC and differential Lab Routine Annual physical exam Expected: 04/21/2024 (Approximate), Expires: 04/21/2025 [facility] Comment on above: Expected: 04/21/2024 (Approximate), Expires: 04/21/2025 Start: 04-21-2024 End: 04-21-2025 Hemoglobin A1c/Hemoglobin.total in Blood Hemoglobin A1c Lab Routine Annual physical exam Expected: 04/21/2024 (Approximate), Expires: 04/21/2025 [facility] Work Phone: Comment on above: Expected: 04/21/2024 (Approximate), Expires: 04/21/2025 Start: 04-21-2024 End: 04-21-2025 Hepatic function 2000 panel - Serum or Plasma Hepatic function panel Lab Routine Annual physical exam Expected: 04/21/2024 (Approximate), Expires: 04/21/2025 [facility] Comment on above: Expected: 04/21/2024 (Approximate), Expires: 04/21/2025 Start: 04-21-2024 End: 04-21-2025 Lipid 1996 panel - Serum or Plasma Lipid panel Lab Routine Annual physical exam Expected: 04/21/2024 (Approximate), Expires: 04/21/2025 [facility] Comment on above: Expected: 04/21/2024 (Approximate), Expires: 04/21/2025 Start: 04-21-2024 End: 04-21-2025 Noninvasive colorectal cancer DNA and occult blood screening [Presence] in Stool Cologuard colon cancer screening Lab Routine Colon cancer screening Expected: 04/21/2024 (Approximate), Expires: 04/21/2025 [facility] Comment on above: Expected: 04/21/2024 (Approximate), Expires: 04/21/2025 Start: 04-21-2024 End: 04-21-2025 Prostate specific Ag [Mass/volume] in Serum or Plasma PSA Lab Routine Annual physical exam Expected: 04/21/2024 (Approximate), Expires: 04/21/2025 [facility] Comment on above: Expected: 04/21/2024 (Approximate), Expires: 04/21/2025 Start: 04-21-2024 End: 04-21-2025 Thyrotropin [Units/volume] in Serum or Plasma TSH Lab Routine Annual physical exam Expected: 04/21/2024 (Approximate), Expires: 04/21/2025 [facility] Comment on above: Expected: 04/21/2024 (Approximate), Expires: 04/21/2025 Start: 03-22-2024 Influenza vaccination Influenza Vacc ine (#1) [facility] Start: 12-02-2023 Screening for malign ant neoplasm of colon [facility] Start: 08-29-2023 End: 08-29-2024 XR Shoulder - right 2 Views XR shoulder 2+ views right Imaging Routine Right shoulder pain, unspecified chronicity Expected: 08/29/2023, Expires: 08/29/2024 [facility] Work Phone: Comment on above: Expected: 08/29/2023 , Expires: 08/29/2024 Start: 03-22-2023 Influenza vaccination Influenza Vacc ine (#1) [facility] Start: 1979 Adult BMI Follow Up Plan Adult BMI Follow Up Plan [facility] Start: 1973 Depression Screening Depression Scre ening [facility] Start: 1961 Screening for malign ant neoplasm of colon [facility] Start: 1961 Tobacco Counseling Tobacco Counselin g [facility] Immunizations Immunization Date Immunization Notes Care Provider Fa cility 04-08-2024 influenza virus vacc ine, unspecified formulation Alexander Pham MD Work Phone: [facility] 04-21-2023 influenza, injectabl e, quadrivalent, preservative free Alexander Pham MD Work Phone: [facility] 04-21-2023 respiratory syncytia l virus monoclonal antibody (palivizumab), intramuscular Alexander Pham MD Work Phone: [facility] 04-21-2023 RSV, recombinant, pr otein subunit RSVpreF, adjuvant reconstitu, 120mcg/0.5mL, PF (Arexvy) Alexander Pham MD Work Phone: [facility] 01-23-2023 zoster vaccine recombinant Alexander Pham MD Work Phone: [facility] 11-27-2022 zoster vaccine recombinant Alexander Pham MD Work Phone: [facility] 05-07-2022 Influenza, injectabl e, Madin Leisa Canine Kidney, preservative free, quadrivalent Alexander Pham MD Work Phone: [facility] 03-14-2022 tetanus toxoid, redu jakob diphtheria toxoid, and acellular pertussis vaccine, adsorbed Alexander Pham MD Work Phone: [facility] 05-06-2021 influenza, injectabl e, quadrivalent, preservative free Alexander Pham MD Work Phone: [facility] 06-03-2020 zoster vaccine recombinant Alexander Pham MD Work Phone: [facility] 04-04-2020 influenza, injectabl e, quadrivalent, preservative free Alexander Pham MD Work Phone: [facility] 04-04-2020 zoster vaccine recombinant Alexander Pham MD Work Phone: [facility] 03-18-2019 Influenza, injectabl e, Madin Leisa Canine Kidney, preservative free, quadrivalent Alexander Pham MD Work Phone: [facility] 03-10-2017 influenza, injectabl e, quadrivalent, preservative free Alexander Pham MD Work Phone: [facility] 03-20-2016 influenza, seasonal, injectable, preservative free Alexander Pham MD Work Phone: [facility] 07-11-2015 influenza, seasonal, injectable, preservative free Alexander Pham MD Work Phone: [facility] 05-24-2014 influenza, seasonal, injectable Alexander Pham MD Work Phone: [facility] Payers Date Payer Category Payer Private Health Insurance PRAVEEN ZURITA [id number] 2022 Unknown [id number] 2021 Unknown [id number] 1961 Unknown [id number] 1961 Unknown [id number] 1961 Unknown [id number] 1961 Unknown [id number] 1961 Unknown [id number] Social History Date Type Detail Facility Tobacco smoking stat [facility] Tobacco smoking consumption unknown [facility] Start: 1960 Sex Assigned At Not on file [facility] Start: 09-17-2023 End: 10-08-2024 Gender identity Not on file [facility] Start: 07-22-1997 End: 09-19-2023 Tobacco smoking status [facility] Smokes tobacco daily [facility] Start: 07-22-1997 History of tobacco use Cigar Smoker [facility] Start: 09-19-2023 Tobacco use and exposure User of smokeless tobacco [facility] Start: 04-21-2024 End: 10-08-2024 Alcoholic beverage intake Ex-drinker (finding) [facility] Start: 09-17-2023 End: 10-08-2024 History of Social function [facility] Do you belong to any clubs or organizations such as methodist groups, unions, fraternal or athletic groups, or school groups? Yes [facility] Are you now , , , , never or living with a partner? Never [facility] How often to you hav e a drink containing alcohol? Never [facility] How many standard dr inks containing alcohol do you have on a typical day? Patient does not drink [facility] Do you feel stress - tense, restless, nervous, or anxious, or unable to sleep at night because your mind is troubled all the time - these days [OSQ] Only a little [facility] In the past 12 month s, was there a time when you were not able to pay the mortgage or rent on time? No [facility] Start: 09-30-2023 Alcohol Comment caffeine intake : 1-2 cups per day soda/pop [facility] Start: 1960 Sex assigned at Male [facility] Start: 09-12-2023 Gender identity Identifies as male gender (finding) [facility] Start: 09-12-2023 Sexual orientation Heterosexual (finding) [facility] Start: 07-03-2023 Tobacco use and exposure Smokeless tobacco non-user [facility] History of Present illness Narrative 10-08-2024 Alexander Pham MD - 10/08/2024 12:39 PM Brinda Pham MD - 10/08/2024 12:39 PM Brinda Pham MD - 10/08/2024 12:39 PM Brinda Pham MD - 10/08/2024 12:15 PM EDT Note Date & Type Note Facility 10-08-2024 History of Presen t illness Narrative Associated Problem(s): Adhesive capsulitis of right shoulder ROM improved with exercises and continue. Use OTC PRN. Associated Problem(s): Prediabetes Repeat labs. Associated Problem(s): Benign essential hypertension (CMS/HCC) BP controlled and monitor PRN. Discussed DASH diet. Images from the original note were not included. Subjective Patient ID: Floyd Sy is a 64 y.o. male who presents for Follow-up (6 m). Follow up HTN and shoulder pain. Patient doing well today. Checking BP PRN and typically controlled. BP normal today. Taking medication daily and tolerating without side effects. Right shoulder pain improved. Improved ROM and pain much less. Able to use arm without as much pain. Performing exercises at home. Using OTC PRN and helps when needed. Review of Systems Constitutional: Negative for fatigue. Respiratory: Negative for cough, shortness of breath and wheezing. Cardiovascular: Negative for chest pain and palpitations. Gastrointestinal: Negative for abdominal pain, diarrhea, nausea and vomiting. Genitourinary: Negative for dysuria. Objective Physical Exam Constitutional: General: He is not in acute distress. Appearance: Normal appearance. HENT: Head: Normocephalic. Right Ear: Tympanic membrane and ear canal normal. Left Ear: Tympanic membrane and ear canal normal. Eyes: Extraocular Movements: Extraocular movements intact. Pupils: Pupils are equal, round, and reactive to light. Cardiovascular: Rate and Rhythm: Normal rate and regular rhythm. Heart sounds: No murmur heard. No friction rub. No gallop. Pulmonary: Breath sounds: Normal breath sounds. No wheezing, rhonchi or rales. Abdominal: General: Bowel sounds are normal. There is no distension. Palpations: Abdomen is soft. Tenderness: There is no abdominal tenderness. There is no guarding or rebound. Musculoskeletal: Left lower leg: No edema. Neurological: Mental Status: He is alert. Assessment/Plan Problem List Items Addressed This Visit Benign essential hypertension (CMS/HCC) - Primary BP controlled and monitor PRN. Discussed DASH diet. Adhesive capsulitis of right shoulder ROM improved with exercises and continue. Use OTC PRN. Prediabetes Repeat labs. Relevant Orders Hemoglobin A1c Basic metabolic panel documented in this encounter [facility] History of Present illness Narrative 04-21-2024 Alexander Pham MD - 04/21/2024 4:06 PM Brinda Pham MD - 04/21/2024 4:06 PM Brinda Pham MD - 04/21/2024 3:30 PM EDT Note Date & Type Note Facility 04-21-2024 History of Presen t illness Narrative Associated Problem(s): Benign essential hypertension (CMS/HCC) BP controlled and monitor PRN. Discussed DASH diet. Associated Problem(s): Annual physical exam Due for labs. Due for colon cancer screening and willing to repeat cologuard. Discussed proper diet and regular aerobic exercise. Need aerobic exercise 5-6 days a week for 30 minutes at a time. Smaller portions and limit total calories. Tetanus every 10 years. Advised not to smoke. Discussed daily Aspirin therapy. Images from the original note were not included. Subjective Patient ID: Floyd Sy is a 63 y.o. male who presents for Follow-up (6 m/wellness) and Annual Exam (wellness). Presents for annual PE. Patient feels well today. Weight down 6 pounds in the past year. Working at [employer] and stays active. No regular exercise. Tries to watch diet and eat healthy. Increased fruits and vegetables. Smaller portions and limits snacking. Tries to limit total daily calories. Due for labs. Checking BP PRN and typically controlled. BP normal today. Taking medication daily and tolerating without side effects. Review of Systems Constitutional: Negative for fatigue. Respiratory: Negative for cough, shortness of breath and wheezing. Cardiovascular: Negative for chest pain and palpitations. Gastrointestinal: Negative for abdominal pain, diarrhea, nausea and vomiting. Genitourinary: Negative for dysuria. Objective Physical Exam Constitutional: General: He is not in acute distress. Appearance: Normal appearance. HENT: Head: Normocephalic. Right Ear: Tympanic membrane and ear canal normal. Left Ear: Tympanic membrane and ear canal normal. Eyes: Extraocular Movements: Extraocular movements intact. Pupils: Pupils are equal, round, and reactive to light. Cardiovascular: Rate and Rhythm: Normal rate and regular rhythm. Heart sounds: No murmur heard. No friction rub. No gallop. Pulmonary: Breath sounds: Normal breath sounds. No wheezing, rhonchi or rales. Abdominal: General: Bowel sounds are normal. There is no distension. Palpations: Abdomen is soft. Tenderness: There is no abdominal tenderness. There is no guarding or rebound. Musculoskeletal: General: Normal range of motion. Left lower leg: No edema. Neurological: General: No focal deficit present. Mental Status: He is alert. Cranial Nerves: No cranial nerve deficit. Deep Tendon Reflexes: Reflexes normal. Assessment/Plan Problem List Items Addressed This Visit Benign essential hypertension (CMS/HCC) BP controlled and monitor PRN. Discussed DASH diet. Annual physical exam - Primary Due for labs. Due for colon cancer screening and willing to repeat cologuard. Discussed proper diet and regular aerobic exercise. Need aerobic exercise 5-6 days a week for 30 minutes at a time. Smaller portions and limit total calories. Tetanus every 10 years. Advised not to smoke. Discussed daily Aspirin therapy. Relevant Orders Hemoglobin A1c Basic metabolic panel CBC and differential Hepatic function panel Lipid panel PSA TSH Other Visit Diagnoses Colon cancer screening Relevant Orders Cologuard colon cancer screening documented in this encounter [facility] History of Present illness Narrative 08-29-2023 Alexander Pham MD - 08/29/2023 4:03 PM EST [...] follow up noted documented in this encounter [facility] Telephone encounter Note 07-31-2023 Telephone Encounter - Avery Garcia CMA - 07/31/2023 1:16 PM EST Note Date & Type Note Facility 07-31-2023 Telephone encount er Note Patient came in stating he would like to cancel his 08/12/2023 appointment because the medication he was given has cleared up all issues and he does not see a reasoning for follow up [facility] Telephone encounter Note 07-31-2023 Telephone Encounter - Carlos Younger MD - 07/31/2023 1:16 PM EST Note Date & Type Note Facility 07-31-2023 Telephone encounter Note noted [employer] Work Phone: Evaluation note Note Date & Type Note Facility Evaluation note Diagnosis Right shoulder pain, unspecified chronicity- Primary documented in this encounter [facility] Evaluation note Note Date & Type Note Facility Evaluation note Diagnosis Annual physical exam- Primary Routine general medical examination at a health care facility Benign essential hypertension (CMS/HCC) Essential hypertension, benign Colon cancer screening Special screening for malignant neoplasms, colon documented in this encounter [facility] Evaluation note Note Date & Type Note Facility Evaluation note Diagnosis Benign essential hypertension (CMS/HCC)- Primary Essential hypertension, benign Arthritis of right acromioclavicular joint Benign essential hypertension (CMS/HCC)- Primary Essential hypertension, benign Adhesive capsulitis of right shoulder Arthritis of right acromioclavicular joint Annual physical exam- Primary Routine general medical examination at a health care facility Benign essential hypertension (CMS/HCC) Essential hypertension, benign Colon cancer screening Special screening for malignant neoplasms, colon Benign essential hypertension (CMS/HCC)- Primary Essential hypertension, benign Prediabetes Other abnormal glucose Adhesive capsulitis of right shoulder documented in this encounter [facility] Instructions Note Date & Type Note Facility Instructions Not on filedocumented in this en counter [facility] Summary Purpose Family History No Family [...] content) DATE CREATED AUTHOR 12/07/2021 [facility] DATE CREATED AUTHOR AUTHOR'S ORGANIZ ATION 06/12/2023 [facility] DATE CREATED AUTHOR AUTHOR'S ORGANIZ ATION 10/10/2024 [facility] Care Teams (unrecognized sec tion and content) Customer Manager Relationship Specialty Start Date End Date Alexander Pham MD PCP - General Family Medicine 07/22/22 Customer Manager Relationship Specialty Start Date End Date Alexander Pham MD [address] [place] [phone] PCP - General Family Medicine 09/05/23 Customer Manager Relationship Specialty Start Date End Date Alexander Pham MD [address] [place] [phone] PCP - General Family Medicine 09/05/23 Customer Manager Relationship Specialty Start Date End Date Alexander Pham MD [address] [place] [phone] PCP - General Family Medicine 09/05/23 Customer Manager Relationship Specialty Start Date End Date Alexander Pham MD [address] [facility] [place], [place] [phone] PCP - General Family Medicine 10/24/19 Customer Manager Relationship Specialty Start Date End Date Alexander Pham MD [address] [place] [phone] PCP - General Family Medicine 09/05/23 Reason for Visit (unrecogniz ed section and content) Reason Comments Follow-up 6 mwellness Annual Exam wellness Reason Comments Follow-up 6 m FOR RECORDS PERTAINING TO PATIENTS WHO ARE [...] BE BASED ON THE PRIMARY CLINICAL RECORDS. [facility] [employer] [facility]. provides no warranty or guarantee of the accuracy or completeness of information in this document.
--- NOTE | 2024-11-29 15:02 | ECG_ITS ---
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 Measurements Intervals [place] Rate: 78 P: 46 CT: 162 QRS: -32 QRSD: 92 T: 20 QT: 372 QTc: 406 Interpretive Statements 1100 Sinus rhythm 7200 Abnormal left axis deviation 8003 Consistent with pulmonary disease 9150 abnormal ECG No previous ECG available for comparison Electronically Signed On 11-29-2024 23:01:51 EDT by ELHAM CASTANEDA M.D.
--- NOTE | 2024-11-29 15:17 | ED_ITS ---
HPI HPI - General Adult General Chief complaint: Head Injury Stated complaint: FALL [facility] Time Seen by Provider: 11/29/24 15:02 Source: patient Mode of arrival: walk-in Limitations: no limitations History of Present Illness HPI narrative: 64-year-old male presents for an injury to his head. He was riding a riding lawnmower and he thinks he may have passed out. When he awoke he had some pain on the right posterior aspect of his head and he noticed an area of swelling so he came in to get checked. He did not fall off of the lawnmower, he was still sitting on it. He has no other complaints. No chest pain or shortness of breath or palpitations or neck pain. No vomiting or or unusual behavior. Related Data Home Medications ?Medication ?Instructions ?Recorded ?Confirmed hydrochlorothiazide 25 mg tablet 25 mg PO Q12H 5 11/29/24 Allergies Allergy/AdvReac Type Severity Reaction Status Date / Time sulfamethoxazole (From AdvReac Intermediate unknown Verified 11/29/24 14:36 Bactrim) trimethoprim (From Bactrim) AdvReac Intermediate unknown Verified 11/29/24 14:36 Opioid HPI Opioid Management Most Recent Opioid Data: Last Pain Scale 5 Today, 14:37 Review of Systems ROS Narrative A ten point review of systems is negative except as noted above. PFSH PFSH Social History Little interest or pleasure in doing things: not at all Feeling down, depressed, or hopeless: not at all Exam Narrative Exam Narrative: Nurses note and vital signs reviewed and patient is not hypoxic. General: The patient appears well and in no apparent distress. Patient is resting comfortably on cart. Skin: Warm, dry, no pallor noted. There is no rash noted. Head: Normocephalic, hematoma present on the right posterior lateral aspect of his scalp. No laceration. Cervical spine nontender. Eye: Normal conjunctiva, no drainage, EOMI. PERRL Ears, Nose, Mouth, and Throat: oral mucosa is moist. Nares patent. Cardiovascular: Regular Rate and Rhythm Respiratory: Patient is in no distress, no accessory muscle use, lungs are clear to auscultation, no wheezing, rales or rhonchi Back: non-tender, including the C-spine GI: Soft and nontender Musculoskeletal: All joints have full range of motion Neurological: A&O, normal speech Psychiatric: Cooperative Constitutional Vital Signs, click to edit/add: Last Vital Signs Temp 98.0 F 11/29/24 14:37 Pulse 95 H 11/29/24 14:37 Resp 18 11/29/24 14:37 BP 159/95 H 11/29/24 14:37 Pulse Ox 98 11/29/24 14:37 O2 Del Method Room Air 11/29/24 14:37 Course Vital Signs Vital signs: Vital Signs Temperature 98.0 F 11/29/24 14:37 Pulse Rate 95 H 11/29/24 14:37 Respiratory Rate 18 11/29/24 14:37 Blood Pressure 159/95 H 11/29/24 14:37 Pulse Oximetry 98 11/29/24 14:37 Oxygen Delivery Method Room Air 11/29/24 14:37 Temperature 98.0 F 11/29/24 14:37 Pulse Rate 95 H 11/29/24 14:37 Respiratory Rate 18 11/29/24 14:37 Blood Pressure 159/95 H 11/29/24 14:37 Pulse Oximetry 98 11/29/24 14:37 Oxygen Delivery Method Room Air 11/29/24 14:37 Medical Decision Making MDM Narrative Medical decision making narrative: Her radiographs are all negative. Scalp hematoma is identified but there is no intracranial bleeding or cervical spine fracture. She has DNRCC status. She is being released back to [facility]. Differential Diagnosis Differential Diagnosis: Intracranial hemorrhage, C-spine fracture, contusion ECG Data Attestation: I personally reviewed and interpreted this ECG as follows: (EKG on my interpretation shows sinus rhythm with rate of 78 and no acute change) Discharge Plan Discharge Chief Complaint: Head Injury Clinical Impression: Scalp hematoma Patient Disposition: Home, Self-Care Time of Disposition Decision: 15:21 Condition: Good Mode of Transportation: Private Vehicle Prescriptions / Home Meds: No Action hydrochlorothiazide 25 mg tablet 25 mg PO Q12H Print Language: Indian Instructions: Scalp Contusion in Adults (ED) Referrals: Alexander Salazar MD [Primary Care Provider, Family Practice] - 1 week
--- NOTE | 2024-11-29 15:36 | ED_ITS ---
HPI HPI - General Adult General Chief complaint: Head Injury Stated complaint: FALL [facility] Time Seen by Provider: 11/29/24 15:02 Source: patient Mode of arrival: walk-in Limitations: no limitations History of Present Illness HPI narrative: 64-year-old male presents for an injury to his head. He was riding a riding lawnmower and he thinks he may have passed out. When he awoke he had some pain on the right posterior aspect of his head and he noticed an area of swelling so he came in to get checked. He did not fall off of the lawnmower, he was still sitting on it. He has no other complaints. No chest pain or shortness of breath or palpitations or neck pain. No vomiting or or unusual behavior. Related Data Home Medications ?Medication ?Instructions ?Recorded ?Confirmed hydrochlorothiazide 25 mg tablet 25 mg PO Q12H 5 11/29/24 Allergies Allergy/AdvReac Type Severity Reaction Status Date / Time sulfamethoxazole (From AdvReac Intermediate unknown Verified 11/29/24 14:36 Bactrim) trimethoprim (From Bactrim) AdvReac Intermediate unknown Verified 11/29/24 14:36 Opioid HPI Opioid Management Most Recent Opioid Data: Last Pain Scale 5 Today, 14:37 Review of Systems ROS Narrative A ten point review of systems is negative except as noted above. PFSH PFSH Social History Little interest or pleasure in doing things: not at all Feeling down, depressed, or hopeless: not at all Exam Narrative Exam Narrative: General: The patient appears well and in no apparent distress. Patient is resting comfortably on cart. Skin: Warm, dry, no pallor noted. There is no rash noted. Head: Normocephalic, hematoma present on the right posterior lateral aspect of his scalp. No laceration. Cervical spine nontender. Eye: Normal conjunctiva, no drainage, EOMI. PERRL Ears, Nose, Mouth, and Throat: oral mucosa is moist. Nares patent. Cardiovascular: Regular Rate and Rhythm Respiratory: Patient is in no distress, no accessory muscle use, lungs are clear to auscultation, no wheezing, rales or rhonchi Back: non-tender, including the C-spine GI: Soft and nontender Musculoskeletal: All joints have full range of motion Neurological: A&O, normal speech Psychiatric: Cooperative Constitutional Vital Signs, click to edit/add: Last Vital Signs Temp 98.0 F 11/29/24 14:37 Pulse 95 H 11/29/24 14:37 Resp 18 11/29/24 14:37 BP 159/95 H 11/29/24 14:37 Pulse Ox 98 11/29/24 14:37 O2 Del Method Room Air 11/29/24 14:37 Course Vital Signs Vital signs: Vital Signs Temperature 98.0 F 11/29/24 14:37 Pulse Rate 95 H 11/29/24 14:37 Respiratory Rate 18 11/29/24 14:37 Blood Pressure 159/95 H 11/29/24 14:37 Pulse Oximetry 98 11/29/24 14:37 Oxygen Delivery Method Room Air 11/29/24 14:37 Temperature 98.0 F 11/29/24 14:37 Pulse Rate 95 H 11/29/24 14:37 Respiratory Rate 18 11/29/24 14:37 Blood Pressure 159/95 H 11/29/24 14:37 Pulse Oximetry 98 11/29/24 14:37 Oxygen Delivery Method Room Air 11/29/24 14:37 Medical Decision Making MDM Narrative Medical decision making narrative: CAT scan of his head is negative and he is able to be discharged home. Tylenol and ice were recommended. Treatment diagnosis and follow-up were discussed with the patient. Imaging Data CT scan - head: Radiologist's impression: No acute intracranial hemorrhage, mass, infarct, or edema; small posterior parietal vertex scalp hematoma with no underlying skull fracture ECG Data Attestation: I personally reviewed and interpreted this ECG as follows: (EKG on my interpretation shows sinus rhythm with a rate of 78 and no acute change) Discharge Plan Discharge Chief Complaint: Head Injury Clinical Impression: Scalp hematoma Patient Disposition: Home, Self-Care Time of Disposition Decision: 16:35 Condition: Good Mode of Transportation: Private Vehicle Prescriptions / Home Meds: No Action hydrochlorothiazide 25 mg tablet 25 mg PO Q12H Print Language: Micronesian Instructions: Scalp Contusion in Adults (ED) Referrals: Alexander Salazar MD [Primary Care Provider, Family Practice] - 1 week
== END 2024-11-29 16:49 | disposition home or self-care (01) ==
PROVIDERS: Emergency Provider Emergency Medicine; PCP Family Medicine
DX: S00.03XA Contusion of scalp, initial encounter (principal); X58.XXXA Exposure to other specified factors, initial encounter
CPT/HCPCS: 70450; 93005; 99284